=== PATIENT | female | born 1990 | race Caucasian/White ===

== ENCOUNTER 2017-03-01 11:50 | Inpatient (IN) | payer BC ==
[2017-03-01 14:52] LABS: Add Diff/Slide Review? Slide Review Added; Comments Flag Yes; Hematocrit 41 % (35-47); Hemoglobin 13.7 g/dl (12.0-16.0); Mean Corpuscular HGB Conc 33 g/dl (31-36); Mean Corpuscular Hemoglobin 30 pg (27-31); Mean Corpuscular Volume 91 fL (80-97); Mean Platelet Volume 10 um3 (7.4-10.4); Red Cell Distribution Width 13 % (10.5-15); White Blood Count 19.6 10^3/ul (3.5-10.8)
[2017-03-01] MEDS ORDERED: OBEPIDURAL* 250 ML ONE (15:02)
[2017-03-01] MEDS ORDERED: OBEPIDURAL* 250 ML EPIDURAL SCH (16:00)
[2017-03-01] MEDS ORDERED: Sodium Citrate/Citric Acid* 15 ML UDC PO PRN (16:00)
[2017-03-01] MEDS ORDERED: Phenylephrine IV* 40 MCG/ML 10 ML SYRINGE IV PUSH PRN ×2 (16:00)
[2017-03-01] MEDS ORDERED: Oxytocin in LR* 20 UNITS/1,000 ML BAG IVPB ONE (19:31)
[2017-03-01] MEDS ORDERED: Oxytocin in LR* 20 UNITS/1,000 ML BAG IVPB SCH (20:00)
[2017-03-01] MEDS ORDERED: ceFOXitin 2 GM IVPREMIX* 2 GM/50 ML BAG ONE (22:27)
[2017-03-01] MEDS ORDERED: ceFOXitin 2 GM IVPREMIX* 2 GM/50 ML BAG IVPB ONE (22:28)
[2017-03-01] MEDS ORDERED: Lidocaine 2% PF* 10 ML AMP ONE ×2 (22:34→23:31)
[2017-03-01] MEDS ORDERED: Morphine PF AMP (0.5MG/ML)* 5 MG/10 ML AMP ONE (22:57)
[2017-03-01] MEDS ORDERED: Ketorolac INJ* 30 MG/ML 1 ML VIAL ONE (23:09)
[2017-03-01] MEDS ORDERED: Ondansetron INJ* 2 MG/ML VIAL ONE (23:09)
[2017-03-01] MEDS ORDERED: Phenylephrine IV* 40 MCG/ML 10 ML SYRINGE ONE (23:09)
[2017-03-01] MEDS ORDERED: OXYTOCIN* 10 UNITS/ML 1 ML VIAL ONE (23:09)
[2017-03-01] MEDS ORDERED: Midazolam* 1 MG/ML 2 ML VIAL (2 MG) ONE (23:19)
[2017-03-01] MEDS ORDERED: fentaNYL* 50 MCG/ML 2 ML VIAL (100 MCG VIAL) ONE (23:20)
[2017-03-01] MEDS ORDERED: Propofol* 10 MG/ML 20 ML BTL IV PUSH ONE (23:42)
[2017-03-01] MEDS ORDERED: Acetaminophen IV 1GM/100ML * 100 ML IVPB ONE (23:45)
[2017-03-01] MEDS ORDERED: oxyCODONE TAB* 5 MG TAB PO PRN (23:45)
[2017-03-01] MEDS ORDERED: DiMENhydriNATE IV* 50 MG/ML VIAL IV PUSH PRN (23:45)
[2017-03-01] MEDS ORDERED: Nalbuphine* 20 MG/ML 1 ML VIAL IV PRN (23:47)
[2017-03-01] MEDS ORDERED: oxyCODONE/Acetamin 5/325 MG* TAB PO PRN (23:47)
[2017-03-01] MEDS ORDERED: Ondansetron INJ* 2 MG/ML VIAL IV PRN (23:47)
[2017-03-01] MEDS ORDERED: Naloxone* 0.4 MG/ML 1 ML VIAL IV PRN (23:47)
[2017-03-02] MEDS ORDERED: Glycerin ADULT SUPP PR PRN (00:15)
[2017-03-02] MEDS ORDERED: Acetaminophen TAB* 325 MG PO PRN (00:15)
[2017-03-02] MEDS ORDERED: Dibucaine 1% 28.35 GM TUBE PR PRN (00:15)
[2017-03-02] MEDS ORDERED: Zolpidem TAB* 5 MG PO PRN ×2 (00:15→21:00)
[2017-03-02] MEDS ORDERED: Witch Hazel PAD* JAR TOPICAL PRN (00:15)
[2017-03-02] MEDS ORDERED: HYDROmorphone* 1 MG/ML 1 ML SYR ONE (00:36)
[2017-03-02] MEDS: HYDROmorphone* 1 MG/ML 1 ML SYR IV PRN ×2 (00:41→01:02)
[2017-03-02] MEDS: Ibuprofen TAB* 600 MG PO SCH ×2 (05:37→11:32)
[2017-03-02] MEDS: Simethicone CHEW TAB* 80 MG PO SCH ×4 (09:37→21:25)
[2017-03-02] MEDS: Docusate CAP* 100 MG PO SCH ×3 (09:37→21:25)
[2017-03-02] MEDS: oxyCODONE/Acetamin 5/325 MG* TAB PO PRN ×4 (10:09→22:07)
--- NOTE | 2017-03-02 16:55 | OP ---
DATE OF OPERATION: 03/01/17 - [facility] DATE OF : 88 SURGEON: Leslie Swift MD CLINICAL TRIAL MANAGER: Sandy Gallo CNM ANESTHESIOLOGIST: Judith Solis MD ANESTHESIA: Epidural PRE-OP DIAGNOSIS: Intrauterine gestation at 40 weeks, arrest of descent, 2+ station. POST-OP DIAGNOSIS: Intrauterine gestation at 40 weeks, arrest of descent, 2+ station. OPERATIVE PROCEDURE: Primary lower transverse section. ESTIMATED BLOOD LOSS: 700 mL. FLUIDS: Crystalloid. DRAINS: Sparks catheter. SPECIMEN: Placenta. COUNTS: Correct. INDICATIONS: The patient arrived to Labor and Delivery in spontaneous labor, underwent labor management with reproduction artist, progressed to fully dilated and pushed for 3 hours with adequate maternal effort and resulting maternal exhaustion. The baby was only at +2 station and therefore, was not deemed low enough to use vacuum suction. Therefore, the discussion was had with the patient and she opted to proceed with primary section. The risks were reviewed with her and consents were signed. FINDINGS: Normal appearing uterus, ovaries, and tubes. Male infant, Apgars of 8 and 9. Weight 7 pounds 14 ounces. Normal-appearing intact placenta with a 3- vessel cord. DESCRIPTION OF PROCEDURE: The patient was taken to the operating room, where her epidural was re-dosed and was found to be adequate. She already had a Sparks catheter in place. SCDs were placed on her legs. She was prepped and draped in the dorsal supine position with a leftward tilt. A Pfannenstiel skin incision was made with a scalpel and carried down to the underlying layer of fascia with the scalpel. The fascia was incised on either side of the midline and the fascial incision extended laterally with the Rodriguez scissors. The inferior edge of the fascial incision was grasped with Robert clamps, tented up and dissected down sharply. Then, the superior edge of the fascial incision was grasped with Robert clamps, tented up and dissected down with a combination of sharp and blunt dissection. The rectus muscles were in the midline and the peritoneum was entered bluntly. The peritoneal incision was extended with blunt pressure. A bladder blade was inserted and a bladder flap was created in the uterine peritoneum with a Metzenbaum scissors. The bladder blade was reinserted. A transverse incision was then made in the lower uterine segment with the scalpel. This incision was extended superiorly and inferiorly with blunt pressure. The infant's head was very low in the pelvis and therefore , was attempted to be raised out of the pelvis with both pressure from below and eventually the head was brought up to the uterine incision and was delivered. It was an OP presentation. The head was followed by the shoulders and the rest of the body. The cord was clamped x2 and cut and the baby was handed to the water use inspector. The placenta was delivered with fundal massage and gentle cord traction. The uterus was exteriorized and the uterine incision was closed with 0 Vicryl in a running locked fashion with the second layer of suture imbricating the first. The abdomen was irrigated. The uterus was placed back in the abdominal cavity. Good hemostasis was noted on the uterine incision. The peritoneum was then closed with 3-0 chromic in a running unlocked fashion. The fascia was closed with 0 Vicryl in a running unlocked fashion and the skin was closed with 4-0 Monocryl in a subcuticular fashion. Mastisol and Steri-Strips were placed. The patient was cleaned and the incision was dressed. The patient was moved to the stretcher and taken to the recovery room in stable condition. [id number]/CPS #: [id number] WINDY
[2017-03-02] MEDS: Ibuprofen TAB* 600 MG PO PRN (17:52)
[2017-03-03] MEDS: Ibuprofen TAB* 600 MG PO PRN ×4 (02:26→22:39)
[2017-03-03] MEDS: oxyCODONE/Acetamin 5/325 MG* TAB PO PRN ×5 (02:27→20:30)
[2017-03-03 07:27] LABS: Hematocrit 33 % (35-47); Hemoglobin 10.9 g/dl (12.0-16.0); Mean Corpuscular HGB Conc 33 g/dl (31-36); Mean Corpuscular Hemoglobin 31 pg (27-31); Mean Corpuscular Volume 93 fL (80-97); Mean Platelet Volume 9 um3 (7.4-10.4); Red Blood Count 3.52 10^6/ul (4.0-5.4); Red Cell Distribution Width 14 % (10.5-15); White Blood Count 19.7 10^3/ul (3.5-10.8)
[2017-03-03] MEDS ORDERED: Ferrous Gluconate TAB* 324 MG TAB PO SCH (09:00)
[2017-03-03] MEDS: Docusate CAP* 100 MG PO SCH ×3 (09:46→22:39)
[2017-03-03] MEDS: Simethicone CHEW TAB* 80 MG PO SCH ×4 (09:47→23:17)
[2017-03-04] MEDS: oxyCODONE/Acetamin 5/325 MG* TAB PO PRN ×3 (01:07→14:21)
[2017-03-04] MEDS: Ibuprofen TAB* 600 MG PO PRN ×2 (06:12→11:38)
[2017-03-04] MEDS: Docusate CAP* 100 MG PO SCH ×2 (07:46→14:20)
[2017-03-04] MEDS: Simethicone CHEW TAB* 80 MG PO SCH ×2 (07:46→11:38)
[2017-03-04 07:57] VITALS: BP 107/56
--- NOTE | 2017-03-04 11:07 | PTEDU ---
Patient Name: KATHY ABRAMS KATHY ABRAMS selected video: Follow Me Mum: The [facility] to Successful to view on 017 at 11:05:42 AM [id number]
--- NOTE | 2017-03-04 11:26 | PTEDU ---
Patient Name: KATHY ABRAMS KATHY ABRAMS selected video: BBOB: Nurturing Your Gorgeous \T\Growing Baby by to huy delaney on 03/04/2017 at 11:25:58 AM from [id number]
== END 2017-03-04 14:55 | disposition home or self-care (01) | DRG 540 ==
LOC: MCHOBOUT 11:50 → MCHOB 12:19
PROVIDERS: ADMIT Midwife; ATTEND Obstetrics & Gynecology
PROC: 10D00Z1 Extraction of Products of Conception, Low, Open Approach (ICD-10-PCS; principal; 2017-03-01 22:47)
DX: O76 Abnormality in fetal heart rate and rhythm complicating labor and delivery (principal); Z37.0 Single live birth; Z3A.40 40 weeks gestation of pregnancy
CPT/HCPCS: 36415; 85025; 86850; 86900; 86901; A9270-GY; J0694; J1170; J1885; J2001; J2250; J2405; J2590; J2704; J3010

== ENCOUNTER 2019-09-04 00:17 | Inpatient (IN) | payer OTHER ==
[2019-09-04] MEDS ORDERED: Lactated Ringers 1000 ML Bag* 1,000 ML IV ONE ×2 (00:47→03:34)
[2019-09-04] MEDS ORDERED: Buffered Lidocaine 1% SYRIN* 1 ML/SYRINGE INTRADERM ONE (00:47)
[2019-09-04] MEDS ORDERED: Lactated Ringers 1000 ML Bag* 1,000 ML IV SCH ×2 (01:00→14:00)
[2019-09-04] MEDS ORDERED: Oxytocin in LR* 20 UNITS/1,000 ML BAG IVPB SCH (01:00)
--- NOTE | 2019-09-04 01:00 | HP ---
General Information - Reason for Visit Rupture of membranes - General Information Maternal Age: 31 Grav: 4 Para: 1 SAB: 1 IEA: 1 Estimated Due Date: 09/21/19 Determined By: LMP Gestational Age in Weeks/Days: 37w3d Maternal Blood Type and Rh: A Positive - Results this Serology/RPR Result: Non-Reactive Rubella Result: Immune HBsAg Result: Negative HIV Result: Negative GBS Culture Result: Negative Past Medical History Delivery History: Hx C/Section - History of x 1 at term, Arrest of Descent, Occiput posterior and asyncylitic, 7#12 oz baby Pertinent Past Medical History: Non-Contributory Pertinent Past Surgical History: See Records Pertinent Family History: Non-Contributory - Antepartal Records Antepartal Records: Reviewed, Complicated by: - history of x 1 Review of Systems Constitutional: Comfortable CV Complaint: No Respiratory: Shortness of Breath: No Gastrointestinal: No Nausea/Vomiting, Normal Bowel Movement Genitourinary: Leaking Fluid, No Dysuria, No Bleeding Musculoskeletal: No Complaint, No Epigastric Pain Neurological: No Headache, No Visual Changes Movement: Normal Exam Allergies/Adverse Reactions: Allergies No Known Allergies Allergy (Verified 12/06/12 12:14) Temp 97 Pulse 80 RR 18 BP 124/80 O2 Sat 100% - Measurements Height: 5 ft 1 in Weight: 150 lb Weight in lbs: 150.413779 Body Mass Index (BMI): 28.3 Pre- Weight: 120 lb Weight Gained This : 30 lbs and 0 ozs - Exam Breast: Breast Exam Deferred CVA: No CVA Tenderness Extremities: No Edema Heart: Normal Rhythm/Heart Sounds HEENT: No Significant Findings Lungs: Clear Bilaterally Rectal: Rectal Exam Deferred Reflexes: DTR 2+ Thyroid: No Thyromegaly - Abdominal Exam Abdomen Exam: Non-Tender, Fundal Height Consistent with Dates - Ultrasound/Biophysical Profile Ultrasound Status: Bedside Exam Ultrasound Findings: Vertex Targeted Exam Findings Estimated Weight: 6#12 oz Presenting Part: Vertex - confirmed via USN. Cervical Exam deffered secondary to rupture in labor Membrane Status: SROM Amniotic Fluid Evaluation: Gross Rupture Bleeding/Discharge: Bloody Show EFM Findings - External Monitor Findings Baseline Heart Rate: 130 External Monitor Findings: Accelerations Present, No Pattern of Variable or Late Decelerations, Variability Moderate, Baseline Stable Contractions: Regular, Moderate, 45-90 Seconds Contraction Frequency: q 1-3 Assessment/Plan - Assessment 29 y/o at 37w3d with SROM, history of x 1, desires TOLAC EFW 6#12oz via leopolds Risks versus benefits versus alternatives of TOLAC versus repeat carefully reviewed Risk of uterine rupture carefully discussed. Pt strongly desires TOLAC TOLAC consent form reviewed and signed - Plan Plan: Observe - Date/Time of Admission Date of Admission: 09/04/19 Time of Admission: 01:00
[2019-09-04 01:29] LABS: Hematocrit 41 % (35-47); Hemoglobin 14.3 g/dL (12.0-16.0); Mean Corpuscular HGB Conc 35 g/dL (31-36); Mean Corpuscular Hemoglobin 32 pg (27-31); Mean Corpuscular Volume 91 fL (80-97); Red Blood Count 4.46 10^6 /uL (3.70-4.87); Red Cell Distribution Width 13 % (10-15); White Blood Count 15.4 10^3/uL (3.5-10.8)
[2019-09-04] MEDS ORDERED: OBEPIDURAL* 250 ML EPIDURAL ONE (01:30)
[2019-09-04 01:46] LABS: ABS Basophils 0.1 10^3/ul (0-0.2); ABS Eosinophils 0.1 10^3/ul (0-0.6); ABS Lymphocytes 3.5 10^3/ul (1.0-4.8); ABS Monocytes 1.4 10^3/ul (0-0.8); ABS Neutrophils 10.2 10^3/ul (1.5-7.7); ABS Nucleated RBC 0.1 10^3/ul; Eosinophil % 0.8 %; Lymphocyte % 22.9 %; Mean Platelet Volume 9.8 fL (7.4-10.4); Nucleated Red Blood Cells % 0.4; Platelet Count 190 10^3/uL (150-450)
[2019-09-04] MEDS ORDERED: Bupivacaine 0.25% SDV PF* 10 ML VIAL INJ ONE (02:13)
[2019-09-04] MEDS ORDERED: Lactated Ringers 1000 ML Bag* 500 ML IV PRN ×2 (03:34)
[2019-09-04] MEDS ORDERED: Sodium Citrate/Citric Acid* 15 ML UDC PO PRN (03:34)
[2019-09-04] MEDS ORDERED: Phenylephrine 40 MCG/ML SYRINGE IV PUSH PRN ×2 (03:34)
[2019-09-04] MEDS ORDERED: Famotidine TAB* 20 MG PO PRN (03:34)
[2019-09-04] MEDS ORDERED: OBEPIDURAL* 250 ML EPIDURAL SCH (04:00)
--- NOTE | 2019-09-04 06:58 | PN ---
Progress Note - Progress Note Date of Service: 09/04/19 Note: Pt comfortable s/p epidural. FHT 140bpm/moderate variabilty/+accels/occasional variable Cervix now fully dilated and +1 Pt feels no urge to push. Contractions have spaced out significantly. Will start low dose Pitocin, start pushing in 1-2 hours or when patient feels the urge to push. Gilberto Jenkins, DO POLO
[2019-09-04] MEDS: Lactated Ringers 1000 ML Bag* 1,000 ML IV SCH ×2 (07:31→09:01)
[2019-09-04 08:52] LABS: Urine Benzodiazepine Screen None Detected (None Detect); Urine Opiates Screen None Detected (None Detect)
--- NOTE | 2019-09-04 09:48 | PN ---
Progress Note - Progress Note Date of Service: 09/04/19 Note: Pt fully dilated and pushing with good effect. Pitocin at 6mU. FHT is reactive and reassuring. DO CHRIST Wilson
--- NOTE | 2019-09-04 12:31 | PN ---
Progress Note - Progress Note Date of Service: 09/04/19 Note: Pt has been fully dilated and pushing x 3.5 hours. Has made continuous slow descent of the head to +2/+3 station with pushing. On palpation baby appears to be in KEANU presentation. FHT is reactive and reassuring with moderate variability. Occasional variable decels. Given pushing x 3.5 hours with slow progress and increasing maternal fatigue, discussed options with patient of continued pushing without assistance versus attempted VAVD given maternal fatigue versus proceeded to repeat . Discussed the risks versus benefits of VAVD including risks of intracranial hemorrhage, intraventricular hemorrhage and subgaleal hemorrhage. Explained to patient that in the event of failed VAVD, we will proceed to . Written consent obtained for section in the event that VAVD fails. DO CHRIST Wilson
[2019-09-04] MEDS ORDERED: Carboprost Tromethamine* 250 MCG INJ ONE (12:57)
[2019-09-04] MEDS ORDERED: Methylergonovine INJ* 0.2 MG/ML 1ML AMP ONE (12:57)
[2019-09-04] MEDS ORDERED: Witch Hazel PAD* JAR ONE (13:15)
[2019-09-04] MEDS ORDERED: Dibucaine 1% 28.35 GM TUBE ONE (13:15)
[2019-09-04] MEDS ORDERED: Glycerin ADULT SUPP PR PRN (13:51)
[2019-09-04] MEDS ORDERED: Witch Hazel PAD* JAR TOPICAL PRN (13:51)
[2019-09-04] MEDS ORDERED: Lidocaine 1% INJ* 10 MG/ML 30 ML SDV ONE (13:57)
[2019-09-04] MEDS: Docusate CAP* 100 MG PO SCH ×2 (14:00→20:20)
--- NOTE | 2019-09-04 16:50 | PROCNOTE ---
[facility] OB: Delivery Note - Delivery A Date of : 09/04/19 Time of : 12:47 [place] Weight at : 9 lb 5 oz Score 1 Minute: 8 Score 5 Minutes: 9 Gestational Age in Weeks and Days at Delivery: 37 Weeks and 4 Days Delivery Method: Low Vacuum Extraction, Vaginal Labor: Spontaneous Did Patient attempt ?: Yes, Successful Amniotic Fluid: Clear Estimated Blood Loss: 450 Anesthesia/Analgesia: CEI for Labor Delivered By: Shon Jenkins JR - Nursery Level of Nursery: Regular/Bedside - Perineum Perineal Injury: Vaginal Laceration, 1st Degree Perineal Injury Comment: right and left labial lacerations Perineal Repair: By Delivering Practioner - Right and left labial lacerations repaired with 3-0 and 4-0 Vicryl rapide. Let labial laceration extending from inrtravaginal sulcus across labia to clitoral jara. - Events Delivery Events of Note: Pitocin During Labor, Difficult Delivery, Pushed > 3 Hours Delivery Events of Note Comment: vacuum extraction - Additional Delivery Notes Additional Delivery Notes: Patient delivered with VAVD after pushing x ~4 hours. See prior note regarding consent for VAVD. 29 y/o at 37w3d presented with SROM in labor. History of x 1 at term secondary to occiput posterior/ascyncliticism, 7#12oz baby. Received epidural and labored uncomplicated to fully dilated with gestation. Pushed x greater than 3 hours. Pt exhausted. Discussed risks versus benefits of continued expectant management versus VAVD versus proceeding with repeat . Elected for VAVD. head was palpated to be in BISHNU position at +2 station. Pelvis was felt to be adequate for vaginal delivery. Epidural with excellent relief. Patient desired to proceed with VAVD and understood risks, including cephalohematoma and shoulder dystocia. Process of VAVD explained and VAVD shown to patient and partner. NICU and Anesthesia were notified prior to attempt. Bladder was emptied with a straight catheter. Kiwi vaccum device applied over the sagittal suture and about 3cm in front of the posteior fontanelle at the point of flexion. Vaccum pressure created with hand pump to 500mmHg. Edge of the vacuum examined to and no maternal tissue was found to be entrapped. With left hand applying counter pressure on the vacuum cup to prevent pop-off, right hand applied gentle horizontal traction along the pelvic axis in coordination with uterine contraction and maternal effort. Progressive descent was noted with the first pull until a pop-off occurred. Vacuum was re-applied to ~ 500mmHg without entrapment of vaginal tissue. The head was delivered with the next contraction and maternal pushing effort without additional pop-offs. The cup was removed immediately after delivery of the head. The shoulders and body were delivered without difficulty and baby was placed on maternal abdomen where the baby was attended to and assessed by nursing staff. Placenta was delivered in tact with fundal massage. IV oxytocin was initiated. Cervix and vagina were thoroughly examined. There was no perineal laceration, but bilateral labial lacerations were present and were repaired with vicryl rapide suture in the usual fashion. Infant was examined after delivery, and there was no evidence of visible laceration, bruises or injury. Mother and baby are doing at the time of this note entry. DO CHRIST Wilson
[2019-09-04] MEDS: Ibuprofen TAB* 600 MG PO PRN (17:16)
[2019-09-04] MEDS ORDERED: Simethicone TAB* 80 MG TAB.CHEW PO SCH (17:30)
[2019-09-04] MEDS: Acetaminophen TAB* 325 MG PO PRN (20:20)
[2019-09-05] MEDS: Ibuprofen TAB* 600 MG PO PRN ×4 (00:45→21:14)
[2019-09-05 05:40] LABS: ABS Eosinophils 0.1 10^3/ul (0-0.6); ABS Lymphocytes 2.9 10^3/ul (1.0-4.8); ABS Monocytes 1.1 10^3/ul (0-0.8); ABS Neutrophils 10.1 10^3/ul (1.5-7.7); Eosinophil % 0.8 %; Hematocrit 32 % (35-47); Hemoglobin 10.9 g/dL (12.0-16.0); Lymphocyte % 20.3 %; Mean Corpuscular HGB Conc 35 g/dL (31-36); Mean Corpuscular Hemoglobin 32 pg (27-31); Mean Corpuscular Volume 92 fL (80-97); Mean Platelet Volume 8.3 fL (7.4-10.4); Nucleated Red Blood Cells % 0.1; Platelet Count 147 10^3/uL (150-450); Red Blood Count 3.44 10^6 /uL (3.70-4.87); Red Cell Distribution Width 13 % (10-15); White Blood Count 14.2 10^3/uL (3.5-10.8)
[2019-09-05] MEDS: Acetaminophen TAB* 325 MG PO PRN ×3 (08:04→21:14)
[2019-09-05] MEDS: Docusate CAP* 100 MG PO SCH ×3 (08:04→21:14)
[2019-09-05] MEDS ORDERED: Ferrous Gluconate TAB* 324 MG TAB PO SCH (09:00)
[2019-09-05] MEDS: Dibucaine 1% 28.35 GM TUBE PR PRN (14:55)
[2019-09-06] MEDS: Ibuprofen TAB* 600 MG PO PRN ×3 (04:53→18:02)
[2019-09-06] MEDS: Docusate CAP* 100 MG PO SCH ×2 (09:28→14:57)
[2019-09-06] MEDS: Acetaminophen TAB* 325 MG PO PRN (09:28)
[2019-09-06 10:30] VITALS: BP 107/70
[2019-09-06] MEDS: Dibucaine 1% 28.35 GM TUBE PR PRN (14:58)
== END 2019-09-06 18:30 | disposition home or self-care (01) | DRG 560 ==
LOC: MCHOBOUT 00:17 → MCHOB 01:01
PROVIDERS: ADMIT Obstetrics & Gynecology; ATTEND Obstetrics & Gynecology
PROC: 10D07Z6 Extraction of Products of Conception, Vacuum, Via Natural or Artificial Opening (ICD-10-PCS; principal; 2019-09-04)
PROC: 4A1HXCZ Monitoring of Products of Conception, Cardiac Rate, External Approach (ICD-10-PCS; 2019-09-04)
PROC: 0UQGXZZ Repair Vagina, External Approach (ICD-10-PCS; 2019-09-04)
PROC: 0UQMXZZ Repair Vulva, External Approach (ICD-10-PCS; 2019-09-04)
DX: O34.211 Maternal care for low transverse scar from previous cesarean delivery (principal); Z37.0 Single live birth; O70.0 First degree perineal laceration during delivery; O75.81 Maternal exhaustion complicating labor and delivery; O76 Abnormality in fetal heart rate and rhythm complicating labor and delivery; Z3A.37 37 weeks gestation of pregnancy
CPT/HCPCS: 36415; 80307; 85025; 86850; 86900; 86901; A9270-GY; J2210; J3490

== ENCOUNTER 2022-07-30 21:08 | Inpatient (IN) ==
[2022-07-30 21:44] LABS: ABS Eosinophils 0.1 10^3/ul (0-0.6); ABS Lymphocytes 2.2 10^3/ul (1.0-4.8); Hematocrit 41 % (35-47); Hemoglobin 13.8 g/dL (12.0-16.0); Lymphocyte % 16.6 %; Mean Corpuscular HGB Conc 33 g/dL (31-36); Mean Corpuscular Hemoglobin 31 pg (27-31); Mean Corpuscular Volume 91 fL (80-97); Mean Platelet Volume 8.5 fL (7.4-10.4); Platelet Count 147 10^3/uL (150-450); Red Blood Count 4.53 10^6 /uL (3.70-4.87); Red Cell Distribution Width 13 % (10-15); White Blood Count 13.3 10^3/uL (3.5-10.8)
[2022-07-30] MEDS ORDERED: OBEPIDURAL (200 ML) 200 ML EPIDURAL ONE (21:52)
[2022-07-30] MEDS ORDERED: Lidocaine 1% w EPI 1:200,000 SDV 30 ML VIAL ONE (21:53)
[2022-07-30] MEDS ORDERED: Buffered Lidocaine 1% SYRIN 1 ml INTRADERM ONE (22:26)
[2022-07-30] MEDS ORDERED: Promethazine INJ(RESTRICTED) 25 MG/ML 1 ml VIAL IV PRN (22:26)
[2022-07-30] MEDS ORDERED: Lactated Ringers 1000 ml BAG 1,000 ML IV ONE ×2 (22:26→23:12)
[2022-07-30] MEDS ORDERED: Nalbuphine 10 MG/ML 1 ML VIAL IV PRN (22:26)
[2022-07-30] MEDS ORDERED: Bupivacaine 0.25% SDV PF 10 ML VIAL INJ ONE (22:54)
[2022-07-30] MEDS ORDERED: Lactated Ringers 1000 ml BAG 1,000 ML IV SCH ×2 (23:00→23:45)
[2022-07-30] MEDS ORDERED: Phenylephrine 40 mcg/mL 10mL (400mcg) SYRINGE IV PUSH PRN ×2 (23:12)
[2022-07-30] MEDS ORDERED: Lactated Ringers 1000 ml BAG 500 ML IV PRN ×2 (23:12)
[2022-07-30] MEDS ORDERED: Sodium Citrate/Citric Acid LIQ 15 ML UDC PO PRN (23:12)
[2022-07-30 23:45] LABS: Urine Appearance Clear; Urine Bilirubin Negative (Negative); Urine Blood 1+ (Negative); Urine Color Yellow; Urine Glucose Negative (Negative); Urine Ketones 1+ (Negative); Urine Nitrite Negative (Negative); Urine Protein Negative (Negative); Urine Specific Gravity 1.012 (1.002-1.030); Urine Urobilinogen Negative (Negative)
[2022-07-30] MEDS ORDERED: OBEPIDURAL (200 ML) 200 ML EPIDURAL SCH (23:45)
[2022-07-30 23:50] LABS: Urine Bacteria Absent (Absent); Urine Red Blood Cell 2+(6-10/hpf) (Absent); Urine White Blood Cell Trace(0-5/hpf) (Absent)
[2022-07-31 00:03] LABS: Urine Benzodiazepine Screen None Detected (None Detect); Urine Cannabinoids Screen None Detected (None Detect); Urine Opiates Screen None Detected (None Detect)
[2022-07-31] MEDS ORDERED: Oxytocin 10 UNITS/ML 1 ML VIAL IM ONE (02:17)
[2022-07-31] MEDS ORDERED: Glycerin ADULT 2.4 gm SUPP PR PRN (02:17)
[2022-07-31] MEDS: Witch Hazel PAD JAR TOPICAL PRN ×2 (02:39→02:41)
[2022-07-31] MEDS: Dibucaine 1% OINT 28.35 GM TUBE PR PRN ×2 (02:39→02:41)
[2022-07-31] MEDS ORDERED: Lactated Ringers 1000 ml BAG 1,000 ML IV SCH (03:00)
[2022-08-01 07:25] LABS: ABS Basophils 0.1 10^3/ul (0-0.2); ABS Eosinophils 0.2 10^3/ul (0-0.6); ABS Lymphocytes 2.1 10^3/ul (1.0-4.8); ABS Monocytes 0.9 10^3/ul (0-0.8); ABS Neutrophils 7.6 10^3/ul (1.5-7.7); Eosinophil % 1.8 %; Hematocrit 40 % (35-47); Hemoglobin 13.5 g/dL (12.0-16.0); Lymphocyte % 19.6 %; Mean Corpuscular HGB Conc 34 g/dL (31-36); Mean Corpuscular Hemoglobin 31 pg (27-31); Mean Corpuscular Volume 92 fL (80-97); Mean Platelet Volume 8.3 fL (7.4-10.4); Platelet Count 143 10^3/uL (150-450); Red Blood Count 4.35 10^6 /uL (3.70-4.87); Red Cell Distribution Width 14 % (10-15); White Blood Count 10.8 10^3/uL (3.5-10.8)
[2022-08-01 08:03] VITALS: BP 105/71
== END 2022-08-01 15:45 | disposition home or self-care (01) | DRG 560 ==
LOC: MCHOBOUT 21:08 → MCHOB 21:27
PROVIDERS: ADMIT Obstetrics & Gynecology; ATTEND Obstetrics & Gynecology

== ENCOUNTER 2024-06-01 08:43 | Inpatient (IN) ==
[2024-06-01] MEDS ORDERED: Prochlorperazine 5 mg/ml 2 ml VIAL (10 mg) IV PRN (09:09)
[2024-06-01] MEDS ORDERED: Lidocaine 1% VIAL 10 MG/ML 30 ML VIAL INJ PRN (09:09)
[2024-06-01] MEDS ORDERED: Nalbuphine 10 MG/ML 1 ML VIAL IV PRN (09:09)
[2024-06-01 10:07] LABS: ABS Eosinophils 0.1 10^3/uL (0.0-0.5); ABS Lymphocytes 1.4 10^3/uL (1.0-4.8); ABS Monocytes 0.7 10^3/uL (0.0-0.9); ABS Neutrophils 7.3 10^3/uL (1.5-7.6); Eosinophil % 0.8 %; Hematocrit 38.8 % (35-45); Hemoglobin 13.2 g/dL (11.5-14.3); Lymphocyte % 14.8 %; Mean Corpuscular Hemoglobin 30.9 pg (27-33); Mean Corpuscular Volume 90.8 fL (80-97); Platelet Count 161 10^3/uL (150-450); Red Blood Count 4.27 10^6/uL (3.63-4.92); Red Cell Distribution Width 13.3 % (12-17); White Blood Count 9.5 10^3/uL (3.8-11.8)
[2024-06-01 10:21] LABS: Urine Benzodiazepine Screen None Detected (None Detect); Urine Cannabinoids Screen None Detected (None Detect); Urine Opiates Screen None Detected (None Detect)
[2024-06-01] MEDS: Lactated Ringers 1000 ml BAG 1,000 ML IV ONE ×2 (12:13→19:30)
[2024-06-01] MEDS: OBEPIDURAL (200 ML) 200 ML EPIDURAL SCH (13:00)
[2024-06-01] MEDS: Lactated Ringers 1000 ml BAG 1,000 ML IV SCH ×2 (13:32→19:30)
[2024-06-01 14:19] LABS: Urine Appearance Clear; Urine Bilirubin Negative (Negative); Urine Blood Negative (Negative); Urine Color Light-Yellow; Urine Glucose Negative (Negative); Urine Ketones 2+ (Negative); Urine Nitrite Negative (Negative); Urine Protein Negative (Negative); Urine Specific Gravity 1.019 (1.002-1.030); Urine Urobilinogen 1+ (Negative); Urine pH 6.5 (5.0-8.0)
[2024-06-01] MEDS: Oxytocin in LR 20,000 MILLI.UNIT/1,000 ML BAG IV SCH (14:41)
[2024-06-01] MEDS ORDERED: Glycerin ADULT 2.4 gm SUPP PR PRN (15:06)
[2024-06-01] MEDS ORDERED: Sodium Citrate/Citric Acid LIQ 15 ML UDC PO PRN (15:45)
[2024-06-01] MEDS ORDERED: Phenylephrine 40 mcg/mL 10mL (400mcg) SYRINGE IV PUSH PRN ×2 (15:45)
[2024-06-01] MEDS ORDERED: Lactated Ringers 1000 ml BAG 1,000 ML IV SCH (16:00)
[2024-06-01] MEDS: Witch Hazel PAD JAR TOPICAL PRN (17:25)
[2024-06-01] MEDS: Dibucaine 1% OINT 28.35 GM TUBE PR PRN (17:25)
[2024-06-01] MEDS: Buffered Lidocaine 1% SYRIN 1 ml INTRADERM ONE (19:29)
[2024-06-01] MEDS: OBEPIDURAL (200 ML) 200 ML EPIDURAL ONE (19:30)
[2024-06-01] MEDS: Phenylephrine 40 mcg/mL 10mL (400mcg) SYRINGE ONE (19:30)
[2024-06-01] MEDS: Oxytocin in LR 20,000 MILLI.UNIT/1,000 ML BAG IV ONE (19:30)
[2024-06-01] MEDS: Lidocaine/Epinephrin 1.5%/200 5 ML AMP INJ ONE (19:30)
[2024-06-02 07:26] LABS: ABS Basophils 0.1 10^3/uL (0.0-0.1); ABS Eosinophils 0.1 10^3/uL (0.0-0.5); ABS Lymphocytes 1.6 10^3/uL (1.0-4.8); ABS Monocytes 0.6 10^3/uL (0.0-0.9); ABS Neutrophils 8.9 10^3/uL (1.5-7.6); Eosinophil % 0.7 %; Hematocrit 38.6 % (35-45); Hemoglobin 13.2 g/dL (11.5-14.3); Lymphocyte % 14.1 %; Mean Corpuscular Hemoglobin 31.3 pg (27-33); Mean Corpuscular Hgb Conc 34.1 g/dL (31-36); Mean Corpuscular Volume 91.6 fL (80-97); Mean Platelet Volume 8.8 fL (7.5-11.2); Platelet Count 153 10^3/uL (150-450); Red Blood Count 4.21 10^6/uL (3.63-4.92); Red Cell Distribution Width 13.6 % (12-17); White Blood Count 11.2 10^3/uL (3.8-11.8)
[2024-06-02 11:34] VITALS: BP 113/68
== END 2024-06-02 16:06 | disposition home or self-care (01) | DRG 560 ==
LOC: MCHOBOUT 08:43 → MCHOB 08:54
PROVIDERS: ADMIT Obstetrics & Gynecology; ATTEND Obstetrics & Gynecology